=== PATIENT | male | born 2000 | race Caucasian/White ===

== ENCOUNTER 2023-11-08 11:59 | Emergency (ER) | payer SELFPAY | END 2023-11-08 15:52 | disposition home or self-care (01) | LOC: MW.ED 11:59 | DX: M25.571 Pain in right ankle and joints of right foot (principal); M21.611 Bunion of right foot; F17.210 Nicotine dependence, cigarettes, uncomplicated | CPT/HCPCS: 73630-26-RT; 73630-RT; 99283 ==

== ENCOUNTER 2024-02-25 14:32 | Emergency (ER) | payer BC ==
[2024-02-25] MEDS: Lidocaine 1% 5 ML VIAL INJECT ONE (16:17)
[2024-02-25] MEDS: Diphtheria,Pertussis(Acell),Tetanus Vaccine 0.5 ML Syringe IM ONE (16:17)
== END 2024-02-25 17:06 | disposition home or self-care (01) ==
LOC: MW.ED 14:32
DX: S61.212A Laceration without foreign body of right middle finger without damage to nail, initial encounter (principal); Z86.16 Personal history of COVID-19; Z87.891 Personal history of nicotine dependence; Z79.899 Other long term (current) drug therapy; Z75.8 Other problems related to medical facilities and other health care; W26.9XXA Contact with unspecified sharp object(s), initial encounter
CPT/HCPCS: 12001; 90471; 90715; 99282; 99282-25; J3490

== ENCOUNTER 2024-04-19 09:33 | Emergency (ER) | payer BC ==
[2024-04-19] MEDS: Ketorolac 30 MG/ML SDV IVPUSH ONE (10:40)
[2024-04-19 10:48] LABS: BASOPHILS ABSOLUTE AUTO 0.07 K/uL (0.00-0.20); BASOPHILS PERCENT AUTO 1.7 % (0.0-1.0); EOSINOPHILS ABSOLUTE AUTO 0.22 K/uL (0.00-0.45); EOSINOPHILS PERCENT AUTO 5.4 % (0.0-6.0); HEMATOCRIT 40.7 % (42.0-52.0); LYMPHOCYTES ABSOLUTE AUTO 1.34 K/uL (1.00-4.80); LYMPHOCYTES PERCENT AUTO 32.9 % (24.0-44.0); MEAN CORPUSCULAR HEMOGLOBIN 31.2 pg (28.0-32.0); MEAN CORPUSCULAR HGB CONC 34.4 g/dL (32.0-36.0); MEAN CORPUSCULAR VOLUME 90.6 fL (83.0-99.0); MONOCYTES ABSOLUTE AUTO 0.29 K/uL (0.00-0.80); MONOCYTES PERCENT AUTO 7.1 % (0.0-8.0); NEUTROPHILS ABSOLUTE AUTO 2.15 K/uL (1.80-7.70); NEUTROPHILS PERCENT AUTO 52.9 % (41.0-71.0); PLATELET COUNT,PLT 203 K/uL (150-400); RED BLOOD CELL COUNT 4.49 M/uL (4.52-5.90); WHITE BLOOD CELL COUNT,WBC 4.07 K/uL (3.9-11.3)
[2024-04-19 11:11] LABS: A/G RATIO 1.4 (0.9-1.6); ALBUMIN 4.3 g/dL (3.4-5.0); BILIRUBIN TOTAL 0.5 mg/dL (0.2-1.0); CALCIUM 8.9 mg/dL (8.5-10.1); CARBON DIOXIDE,CO2 31.9 mmol/L (21.0-32.0); CREATININE 1.1 mg/dL (0.8-1.3); EST CRCL DRUG DOSING (CG) 81.31 mL/min; MAGNESIUM 2.2 mg/dL (1.8-2.4); POTASSIUM,K 4.4 mmol/L (3.5-5.1); PROTEIN TOTAL,TP 7.4 g/dL (6.4-8.2)
[2024-04-19 11:58] LABS: APPEARANCE,URINE CLEAR; BILIRUBIN,URINE NEGATIVE (NEGATIVE); COLOR,URINE YELLOW; GLUCOSE,URINE NEGATIVE (NEGATIVE); KETONES,URINE NEGATIVE (NEGATIVE); LEUKOCYTE ESTERASE,URINE NEGATIVE (NEGATIVE); NITRITE,URINE NEGATIVE (NEGATIVE); OCCULT BLOOD,URINE NEGATIVE (NEGATIVE); PH,URINE 6.5 (5.0-8.0); PROTEIN,URINE NEGATIVE (NEGATIVE); UROBILINOGEN,URINE 0.2 EU/dL (<2.0)
[2024-04-19] MEDS: Lidocaine 4% 1 each Patch TOP STA (12:50)
[2024-04-19] MEDS: Acetaminophen 500 MG Tab PO ONE (12:51)
== END 2024-04-19 12:54 | disposition home or self-care (01) ==
LOC: MW.ED 09:33
DX: R10.11 Right upper quadrant pain (principal); Z87.891 Personal history of nicotine dependence; Z79.899 Other long term (current) drug therapy
CPT/HCPCS: 36415; 76705; 80053; 81003; 83690; 83735; 85025; 96374; 99284; A9270; J1885